=== PATIENT | female | born 1995 | race Caucasian/White ===

== ENCOUNTER 2023-11-14 12:30 | Emergency (ER) | payer BC, SELFPAY ==
--- NOTE | ~2023-11-14 | US_ITS ---
EXAMINATION: US OB <= 14 weeks fetus DATE: 11/14/2023 13:47 INDICATION: Vaginal bleeding in . TECHNIQUE: Real-time transabdominal pelvic ultrasound was performed. COMPARISON: None. FINDINGS: The uterus measures 9.9 x 5.7 x 6.2 cm. There is an intrauterine gestational sac. The crown rum p length measures 9 mm, which correlates with an estimated gestational age of 6 weeks and 6 day(s) (+ /-) 4 day(s). heart motion is identified measuring 140 beats per minute (bpm) by M-mode Doppler . The right ovary measures 3.4 x 2.1 x 2.6 cm. The left ovary measures 3.7 x 2.2 x 2.4 cm. There is n o free fluid in the pelvis. IMPRESSION: 1. Single living intrauterine gestation with estimated date of delivery of 07/03/2024. Reviewed, dictated and finalized at location E. IMPRESSION: 1. Single living intrauterine gestation with estimated date of delivery of .
[2023-11-14 12:48] VITALS: BP 129/82; PULSE 90; RESP 18; TEMP 36.9; O2SAT 99
[2023-11-14 13:02] LABS: Basophils Percent Auto 0.4 % (0.2-1.2); Eosinophils Percent Auto 0.4 % (0-4.4); Hematocrit 40.4 % (37.0-47.0); Hemoglobin 13.5 g/dL (12.0-15.0); Immature Granulocyte Absolute 0.04 K/mm3 (0.00-0.031); Immature Granulocyte Percent A 0.4 % (0-0.5); Lymphocytes Absolute Auto 1.52 K/mm3 (0.9-3.2); Lymphocytes Percent Auto 15.2 % (18.3-44.2); Mean Corpuscular HGB Conc 33.4 g/dl (32-36); Mean Corpuscular Hemoglobin 28.7 pg (26-34); Mean Corpuscular Volume 85.8 fl (80-100); Mean Platelet Volume 9.5 fl (7.4-10.4); Monocytes Absolute Auto 0.6 K/mm3 (0.1-0.6); Monocytes Percent Auto 5.9 % (2.6-8.5); Neutrophils Absolute Auto 7.8 K/mm3 (1.3-6.7); Neutrophils Percent Auto 77.7 % (45.5-73.1); Platelet Count Result 255 k/mm3 (150-375); Red Blood Count 4.71 M/mm3 (4.2-5.4); Red Cell Distribution Width 12.8 % (11.5-14.5)
[2023-11-14 13:14] LABS: Alanine Aminotransferase 25 U/L (6-35); Albumin Level 4.8 g/dL (3.5-5.1); Alkaline Phosphatase 53 U/L (38-126); Anion Gap 11 mmol/L (4-12); Aspartate Amino Transferase 21 U/L (14-36); Bilirubin,Total 0.6 mg/dL (0.2-1.3); Blood Urea Nitrogen 10 mg/dL (7-17); Calcium 9.6 mg/dL (8.4-10.2); Carbon Dioxide 21 mmol/L (22-30); Chloride 106 mmol/L (98-107); Estimated CRCL calculation 108 ml/min; Estimated Glomerular Filt Rate > 60; Glucose 98 mg/dL (65-110); Potassium 3.6 mmol/L (3.4-5.0); Sodium 138 mmol/L (137-145)
--- NOTE | 2023-11-14 13:22 | ED.GENADULT ---
HPI - General Adult General Chief complaint: Vaginal Bleeding Stated complaint: , spottign 7 weeks Time Seen by Provider: 11/14/23 12:32 History of Present Illness HPI narrative: Patient is a 28-year-old who is 7 and half weeks in gestation who presents ER with vaginal spotting. Began just prior to coming to the ER. No abdominal pain or cramping. She has not yet had an ultrasound to confirm IUP. No urinary frequency urgency or dysuria. Her obstetric care is at [facility] in [place]. Related Data Allergies Allergy/AdvReac Type Severity Reaction Status Date / Time No Known Allergies Allergy Mild Unverified 11/11/08 15:40 Review of Systems Constitutional: Constitutional: Reports no additional constitutional complaints Gastrointestinal: Gastrointestinal: Reports no additional gastrointestinal complaints Genitourinary: Genitourinary: Reports abnormal vaginal bleeding, Denies hematuria, Denies nocturia, Denies dysuria and Denies pelvic pain PMFSH Past Medical History Medical History (Updated 11/14/23 @ 14:18 by Conner Mendoza MD) Healthy female adult Surgical History Surgical History (Updated 11/14/23 @ 13:25 by Conner Mendoza MD) No pertinent past surgical history Exam Narrative: GENERAL: Well-appearing, well-nourished, and in no acute distress. HEAD: Normocephalic, atraumatic. ENT: Mucous membranes moist. CHEST: Clear to auscultation. No respiratory distress. HEART: Regular rate and rhythm. Normal peripheral pulses. ABDOMEN: Soft, nontender, nondistended. EXTREMITIES: Normal range of motion. No edema. NEURO: Alert and oriented x3. PSYCH: Normal mood and affect. Course Course Emergency Course: Patient educated on lab and imaging results. She has been given a print off of the imaging report as well as her beta hCG level. Recommend follow-up with her OB. Patient's blood type is O positive and she does not require Rh IG. Vital Signs Vital signs: Vital Signs Temperature 98.5 F 11/14/23 12:48 Pulse Rate 90 11/14/23 12:48 Respiratory Rate 18 11/14/23 12:48 Blood Pressure 129/82 11/14/23 12:48 Pulse Oximetry 99 11/14/23 12:48 Oxygen Delivery Room Air 11/14/23 12:48 Temperature 98.5 F 11/14/23 12:48 Pulse Rate 90 11/14/23 12:48 Respiratory Rate 18 11/14/23 12:48 Blood Pressure 129/82 11/14/23 12:48 Pulse Oximetry 99 11/14/23 12:48 Oxygen Delivery Room Air 11/14/23 12:48 Medical Decision Making Vital Signs Vital Signs: Vital Signs Temperature 98.5 F 11/14/23 12:48 Pulse Rate 90 11/14/23 12:48 Respiratory Rate 18 11/14/23 12:48 Blood Pressure 129/82 11/14/23 12:48 Pulse Oximetry 99 11/14/23 12:48 Oxygen Delivery Room Air 11/14/23 12:48 Temperature 98.5 F 11/14/23 12:48 Pulse Rate 90 11/14/23 12:48 Respiratory Rate 18 11/14/23 12:48 Blood Pressure 129/82 11/14/23 12:48 Pulse Oximetry 99 11/14/23 12:48 Oxygen Delivery Room Air 11/14/23 12:48 Lab Data 11/14/23 12:55 11/14/23 12:55 Labs: Lab Results 11/14/23 Range/Units 12:55 WBC 10.0 (4.5-10.0) K/mm3 RBC 4.71 (4.2-5.4) M/mm3 Hgb 13.5 (12.0-15.0) g/dL Hct 40.4 (37.0-47.0) % MCV 85.8 (80-100) fl MCH 28.7 (26-34) pg MCHC 33.4 (32-36) g/dl RDW 12.8 (11.5-14.5) % Plt Count 255 (150-375) k/mm3 MPV 9.5 (7.4-10.4) fl Immature Gran % (Auto) 0.4 (0-0.5) % Neut % (Auto) 77.7 H (45.5-73.1) % Lymph % (Auto) 15.2 L (18.3-44.2) % Rolette % (Auto) 5.9 (2.6-8.5) % Eos % (Auto) 0.4 (0-4.4) % Baso % (Auto) 0.4 (0.2-1.2) % Lymph # (Auto) 1.52 (0.9-3.2) K/mm3 Rolette # (Auto) 0.6 (0.1-0.6) K/mm3 Eos # (Auto) 0.0 (0-0.3) K/mm3 Baso # (Auto) 0.0 (0.0-0.1) K/mm3 Abs Immat Gran (auto) 0.04 H (0.00-0.031) K/mm3 Absolute Neuts (auto) 7.8 H (1.3-6.7) K/mm3 Absolute Nucleated RBC 0.000 (0.0-0.012) K/mm3 Nucleated RBC % 0.0 (0.0-0.2)
[2023-11-14 13:34] LABS: INR 0.9; Partial Thromboplastin Time 26.8 Seconds (22.3-36.8); Prothrombin Time 12.9 Seconds (11.1-14.7)
[2023-11-14 14:30] VITALS: BP 117/78; PULSE 94; RESP 15; TEMP 37.1; O2SAT 99
== END 2023-11-14 14:31 | disposition home or self-care (01) ==
PROVIDERS: Emergency Provider Emergency Medicine
DX: O20.0 Threatened abortion (principal); Z3A.01 Less than 8 weeks gestation of pregnancy
CPT/HCPCS: 36415; 76801; 80053; 84702; 85025; 85461; 85610; 85730; 86850; 86900; 86901; 99284